=== PATIENT | male | born 1975 | race Caucasian/White ===

== ENCOUNTER 2020-12-12 10:02 | Emergency (ER) | payer OTHER, SELFPAY ==
[2020-12-12 10:12] VITALS: BP 123/83; PULSE 68; RESP 16; TEMP 36.6; O2SAT 98; BMI 25.0
--- NOTE | 2020-12-12 10:20 | ED_ITS ---
HPI - Back Pain/Injury General Chief Complaint: Back Pain/Injury Stated Complaint: low back pain Time Seen by Provider: 12/12/20 10:14 Source: patient Mode of arrival: ambulatory Limitations: no limitations History of Present Illness HPI Narrative: 45-year-old male with a past medical history of chronic back pain presenting to the ED with complaints of acute on chronic back pain to the thoracic/lumbar region for the past 2 days worse today. Denies any trauma. Reports this is similar to his prior chronic back pain episodes. Denies any other symptoms complaints or concerns at this time. MD elicited complaint: back pain Pertinent past history: prior back pain Onset (ago): day(s) (Two days worse today) Timing: constant and progressively worsening Severity: moderate Similar Symptoms Previously: Yes Quality: spasming Location: lumbar spine and thoracic spine Radiation: none Exacerbating factors: movement and walking Relieving factors: none Associated symptoms: denies other symptoms Treatments prior to arrival: other (Reports he has used multiple [id number] medication no symptomatic relief.) Work related injury: No Related Data Previous Rx's Medication Instructions Recorded acetaminophen [Tylenol Extra 1,000 mg PO QID PRN #14 tab 12/12/20 Strength] cyclobenzaprine 10 mg PO Q8H #10 tab 12/12/20 naproxen 500 mg PO BID PRN #10 tab 12/12/20 oxycodone 5 mg PO BID PRN #10 tab 12/12/20 Allergies Allergy/AdvReac Type Severity Reaction Status Date / Time No Known Allergies Allergy Verified 12/12/20 10:12 Review of Systems Review of Systems: Constitutional : No trauma, No Weight loss, No Fever, No Chills, ENT/Mouth : No Hearing loss, No Ear Pain, No Nasal Congestion, No Sinus Pain, No Hoarseness, No sore throat, No Rhinorrhea, No Swallowing Difficulty Cardiovascular : No Chest Pain, No SOB Respiratory : No Cough, No Dyspnea Gastrointestinal : No Nausea, No Vomiting, No Diarrhea, No abdominal Pain, No Hematochezia, No Melena Genitourinary : No Dysuria, No Urinary Frequency, No Hematuria, No Urinary or Bowel Incontinence/retention Musculoskeletal : + Back pain, No neck pain, No joint stiffness, No joint swelling Skin : No Skin Lesions, No rash or signs of infection Neuro : No Weakness, No radiation, No Numbness, No Paresthesias, No headache, no loss of bowel or bladder incontinence, no saddle anesthesia, Focal weakness, No radiation Denies history of IV drug usage. Yes all other systems are reviewed and are neg ative [facility] Past Medical History Attestation statement: The following information was validated with the patient. Medical History Chronic low back pain Social History Social History Smoking Status: Current some day smoker Smoked in Last 30 Days: Yes Use of substances other than those prescribed or required for medical reasons: No Advance Directives: Yes Advance Directives Information Provided: No Advance Directives on File: No Physical Exam Vital Signs: Vital Signs: Last Vital Signs Temp 97.9 F 12/12/20 10:12 Pulse 68 12/12/20 10:12 Resp 16 12/12/20 10:12 BP 123/83 12/12/20 10:12 Pulse Ox 98 12/12/20 10:12 Body Mass Index 25.0 vital signs have been reviewed as normal and appeared to be correct. Blood pressure normal. Heart rate normal. Respiration rate normal. Temperature normal. Oxygen saturation normal. Appearance: Alert. Oriented X3. No acute distress. Head: Normal external exam. Normocephalic. Atraumatic. No Hu signs noted. No raccoon eyes noted Eyes: PERRLA. EOMI. Conjunctiva and sclera normal. Eyelids normal. ENT: EAC normal. TM's Normal. Pharynx normal. Uvula midline. Moist mucous membranes. No trismus noted. No drooling noted. No muffled voice noted. Neck: Normal inspection. Neck supple. FROM. No adenopathy. Thyroid Normal. No meningeal signs. No neck mass noted. CVS: Normal heart rate and rhythm. Heart sound normal. No murmurs noted. Pulses normal throughout. Respiratory: No respiratory distress. Painless inspiration. Breath sounds normal. No wheezes/rales/rhonchi noted. Chest nontender. No accessory muscle usage noted or decreased air movement noted. Abdomen: Soft and nontender. Bowel sounds normal in all 4 quadrants. No distention noted. No organomegaly noted. No visible injury noted. Back: No CVA tenderness. Full range of motion noted. No obvious deformities, or edema. Mild para-spinal muscular tenderness from lumbar region to coccyx. Full ROM in back and lower extremities. 5/5 strength hip extension/flexion, abduction, adduction. Mild Lumbar pain with hip flexion against resistance. Straight leg raise test negative on right; Straight leg raise test negative on left; Reflexes normal ankle and knee bilaterally; EHL motor strength normal bilaterally Skin: Skin warm and dry. Normal skin color. Normal skin turgor. No rashes/lesions/lacerations noted. Extremities: No lower extremity edema. Extremities exhibit normal range of motion. Extremities nontender. Neuro: Oriented X 3. No motor deficit. No sensory deficit. Reflexes normal. Course Course Course Narrative: Pt c likely muscular pain, but could be herniated disc. Neuro exam shows no deficits. Not c/w AAA/epidural abscess/dissection.No high risk Hx (Incont, fever, immunosupp, recent surgery/LP, coag, signif trauma, wt loss, puls mass, hx/o Ca, TB, or IVDU) to warrant MRI/CT today. Not c/w Pyelo/UTI/kidney stone/spinal fx. Not cauda equina syndrome. Imaging not currently indicated. DC c meds and f/u. MDM - Back Pain/Injury Medical Records Attestation: I reviewed the patient's medical records. Discharge Plan Discharge Clinical Impression: Strain of lumbar region, Chronic low back pain Patient Disposition: Home, Self-Care Instructions: Back Pain (ED), Lower Back Exercises (ED) Prescriptions: New cyclobenzaprine 10 mg tablet 10 mg PO Q8H Qty: 10 RF: 0 acetaminophen [Tylenol Extra Strength] 500 mg tablet 1,000 mg PO QID PRN (Reason: fever or pain) Qty: 14 RF: 0 naproxen 500 mg tablet 500 mg PO BID PRN (Reason: pain) Qty: 10 RF: 0 oxycodone 5 mg tablet 5 mg PO BID PRN (Reason: pain) Qty: 10 RF: 0 Referrals: Physician,None [Primary Care Provider] - 2 days (Your PCP as needed) Stand Alone Forms: Work/School Release Print Language: Serbian
== END 2020-12-12 10:38 | disposition home or self-care (01) ==
PROVIDERS: Emergency Provider Emergency Medicine Emergency Medical Services
DX: G89.29 Other chronic pain (principal); M54.5 Low back pain; S39.012A Strain of muscle, fascia and tendon of lower back, initial encounter; X58.XXXA Exposure to other specified factors, initial encounter; F17.200 Nicotine dependence, unspecified, uncomplicated; Y93.9 Activity, unspecified; Y92.9 Unspecified place or not applicable; Y99.9 Unspecified external cause status
CPT/HCPCS: 99283

== ENCOUNTER 2021-04-15 10:17 | Emergency (ER) | payer SELFPAY ==
[2021-04-15 11:08] VITALS: BP 134/82; PULSE 69; RESP 18; TEMP 36.6; O2SAT 98; BMI 25.8
--- NOTE | 2021-04-15 11:22 | ED_ITS ---
HPI - Back Pain/Injury General Chief Complaint: Back Pain/Injury Stated Complaint: low back pain Time Seen by Provider: 04/15/21 11:22 Source: patient Mode of arrival: ambulatory Limitations: no limitations History of Present Illness HPI Narrative: 45-year-old male with a past medical history of chronic low back pain presents for worsening bilateral low back pain that started 2 days ago. There was no precipitating event. Patient did not lift anything heavy or have any repetitive motion. Patient sustained back injury at work in 2009, has had chronic back pain since then. Patient has no red flag symptoms, no incontinence of bowel or bladder, no fevers, no history of IV drug use, no saddle paresthesias, no leg weakness or numbness or tingling. MD elicited complaint: back pain Pertinent past history: prior back pain Onset (ago): day(s) (2) Timing: constant Severity: severe Similar Symptoms Previously: Yes Quality: aching Location: right lower back and left lower back Radiation: none Exacerbating factors: movement Relieving factors: none Context: unknown Associated symptoms: denies other symptoms Treatments prior to arrival: NSAIDS Work related injury: No Related Data Previous Rx's Medication Instructions Recorded acetaminophen 500 mg tablet 1,000 mg PO QID PRN #14 tab 12/12/20 (Tylenol Extra Strength) cyclobenzaprine 10 mg tablet 10 mg PO Q8H #10 tab 12/12/20 naproxen 500 mg tablet 500 mg PO BID PRN #10 tab 12/12/20 oxycodone 5 mg tablet 5 mg PO BID PRN #10 tab 12/12/20 methocarbamol 750 mg tablet 1,500 mg PO Q8H 5 Days #30 tab 04/15/21 oxycodone-acetaminophen 5 mg-325 1 tab PO Q4-6H PRN #10 tab 04/15/21 mg tablet (Percocet) Allergies Allergy/AdvReac Type Severity Reaction Status Date / Time No Known Allergies Allergy Verified 04/15/21 11:08 Review of Systems Constitutional: Constitutional: Denies chills, Denies fever(s), Denies headache(s) and Denies weakness Eyes: Eyes: Denies blurry vision, Denies diplopia and Denies eye pain ENT: Denies vertigo, Denies dizziness, Denies headache(s) and Denies neck pain Cardiovascular: Cardiovascular: Denies chest pain, Denies leg edema, Denies lightheadedness and Denies dyspnea Respiratory: Respiratory: Denies chest congestion, Denies cough and Denies dyspnea Gastrointestinal: Gastrointestinal: Denies abdominal pain, Denies melena, Denies hematochezia, Denies constipation, Denies fecal incontinence, Denies nausea and Denies vomiting Genitourinary: Genitourinary: Denies hematuria, Denies flank pain, Denies urinary frequency, Denies urinary hesitancy, Denies urinary incontinence and Denies urinary urgency Musculoskeletal: Musculoskeletal: Reports back pain, Denies muscle weakness, Denies neck pain, Denies radiating pain into limb and Denies tingling Integumentary/Breasts: Skin/Breast: Denies rash Neurologic: Denies burning sensations, Denies vertigo, Denies dizziness, Denies headache(s), Denies radicular pain, Denies Sensory deficit (Neuro), Denies tingling, Denies paresthesias and Denies weakness Comments: No saddle paresthesia Psychiatric: Psychiatric: Reports no additional psychiatric complaints [facility] Past Medical History Medical History Chronic low back pain Social History Social History Advance Directives: No Advance Directives Information Provided: No Physical Exam Vital Signs: Vital Signs: Last Vital Signs Temp 97.8 F 04/15/21 11:08 Pulse 69 04/15/21 11:08 Resp 18 04/15/21 11:08 BP 134/82 04/15/21 11:08 Pulse Ox 98 04/15/21 11:08 Body Mass Index 25.8 Const: General: cooperative, healthy appearing, alert and awake Nutritional Appearance: average body habitus Orientation/consciousness: patient oriented x3 Limitations: no limitations HENMT: Head: Yes normal to inspection Ears: hearing grossly normal bilaterally Face and sinus: Yes normal facial exam Eyes: Pupils: Equal, round and reactive pupils present EOM: EOMs intact bilaterally Neck: Neck: Yes full ROM, Yes no meningeal signs and Yes supple Resp: Effort & Inspection: normal respiratory effort and able to speak in complete sentences Auscultation: clear to auscultation bilaterally, no crackles, no rales, no rhonchi and no wheezes Cardio: Rate: regular rate Rhythm: regular rhythm Heart sounds: S1 normal heart sound present and S2 normal heart sound present : General: Yes no CVA tenderness Back/Spine/Pelvis: Back: no CVA tenderness Cervical Spine: normal cervical lordosis, cervical ROM normal, No cervical muscular tenderness and No Cervical spine tenderness Thoracic/Lumbar Spine: pain with thoraco-lumbar ROM, paraspinal muscle tenderness bilaterally in the lower thoracic and in the upper lumbar, thoraco-lumbar ROM limited with forward flexion, with lateral flexion to the right, with lateral flexion to the left, with rotation to the right and with rotation to the left, thoraco-lumbar spasm on the right greater than left, No thoracic spinal tenderness, No lumbar spinal tenderness and No straight leg raise positive Pelvis: no pain with anterior-posterior compression Skin: General skin exam: no rashes or lesions noted Neuro: General: patient oriented x3, no meningeal signs and no focal motor deficits Cranial nerves: Yes Equal, round and reactive pupils present Gait exam (Neuro): Normal gait present Motor exam (neuro): 5/5 motor strength present throughout Sensory Exam: No Sensory deficit (Neuro) Deep tendon reflexes (DTR's): Right patellar reflex intensity grade: 1+ and Left patellar reflex intensity grade: 1+ Extrem: General: Yes full ROM, Yes capillary refill normal and Yes normal gait Right lower extremity: full ROM and normal capillary refill Left lower extremity: full ROM and normal capillary refill Course Course Course Narrative: 45-year-old male with a history of chronic low back pain presents for atraumatic acute low back pain that started 2 days ago. The pain is bilateral, and is severe. On exam, patient has stable vitals, is afebrile, has intact lower extremity pulses, sensation, deep tendon reflexes, and motor strength. Negative straight leg raise. Patient has limited range of motion of his spine with flexion, extension, and rotation. Patient has palpable muscle spasm bilaterally and has midthoracic can lower paraspinous muscles. No vertebral point tenderness. Has no evidence of cauda equina, no evidence of epidural abscess, no red flag symptoms. Suggested to patient I would like to give him a shot of ketorolac along with muscle relaxant, patient adamantly refused shot of ketorolac. States he does not like needles. States he has never been an IV drug user and has no problems with addiction. States ibuprofen and naproxen do not work for him, and he got oxycodone last time for his back pain. Looked pt up on [facility], he has had only 2 short prescriptions, one for oxycodone, one for tramdol. I told patient I will prescribe Percocet for him this last time, but if he is to present to the emergency room in future, he will have to tolerate a shot. Discharge Plan Discharge Clinical Impression: Low back pain Qualifiers: Chronicity: acute Back pain laterality: bilateral Sciatica presence: without sciatica Qualified Code(s): M54.5 - Low back pain Patient Disposition: Home, Self-Care Instructions: Acute Low Back Pain (ED) Additional Instructions: Please fill the prescriptions and take the Robaxin as prescribed. Take the oxycodone as needed. Return to work on Thursday. Please call the list of primary care providers that we provided for you to get established with a new doctor. If you have leg weakness, if you are incontinent of bowel or bladder, if you have numbness or tingling in your groin, or any other new or concerning symptoms, please return to the emergency room. Prescriptions: New oxycodone-acetaminophen [Percocet] 5-325 mg tablet 1 tab PO Q4-6H PRN (Reason: pain) Qty: 10 RF: 0 methocarbamol 750 mg tablet 1,500 mg PO Q8H 5 Days Qty: 30 RF: 0 No Action cyclobenzaprine 10 mg tablet 10 mg PO Q8H Qty: 10 RF: 0 acetaminophen [Tylenol Extra Strength] 500 mg tablet 1,000 mg PO QID PRN (Reason: fever or pain) Qty: 14 RF: 0 naproxen 500 mg tablet 500 mg PO BID PRN (Reason: pain) Qty: 10 RF: 0 oxycodone 5 mg tablet 5 mg PO BID PRN (Reason: pain) Qty: 10 RF: 0 Stand Alone Forms: Work/School Release Interventions: ED Discharge Assessment Last Done: 04/15/21 11:49 Discharge Date/Time: 04/15/21 11:52
== END 2021-04-15 11:52 | disposition home or self-care (01) ==
PROVIDERS: Emergency Provider Emergency Medicine
DX: M54.5 Low back pain (principal); Z79.899 Other long term (current) drug therapy
CPT/HCPCS: 99283

== ENCOUNTER 2021-05-20 10:29 | Emergency (ER) | payer OTHER, SELFPAY ==
--- NOTE | ~2021-05-20 | XR_ITS ---
EXAMINATION: XR ELBOW, RIGHT XR ELBOW, LEFT CLINICAL INFORMATION: Trauma, pain COMPARISON: None TECHNIQUE: Each elbow is imaged in 3 views. There are a total of 6 views. FINDINGS: Right: There is no fracture, dislocation, or right elbow capsular effusion. The articular surfaces appear intact. There is no joint narrowing or erosive change. Small olecranon spur is present. Left: There is no fracture, dislocation, or left elbow capsular effusion. The articular surfaces appear intact. There is no joint narrowing or erosive change. Small olecranon spur is present. XR/XR elbow RT 2V IMPRESSION: 1. No fracture or dislocation or capsular effusion. 2. Small bilateral olecranon spurs.
--- NOTE | ~2021-05-20 | XR_ITS ---
EXAMINATION: XR THORACIC SPINE XR LUMBAR SPINE CLINICAL INFORMATION: Trauma, pain COMPARISON: None TECHNIQUE: The thoracic spine is imaged in 3 views. The lumbar spine is imaged in 3 views. There are total of 6 views. FINDINGS: Thoracic: There are 11 rib pairs. Subtle lucency overlying the left T11 costovertebral junction is likely related to superimposed bowel gas and not present on AP view lumbar spine. There is no thoracic vertebral compression or visible fracture. No focal disc narrowing. No spondylolisthesis or destructive process or paraspinal soft tissue swelling. Lumbar: There are 5 nonrib-bearing lumbar vertebrae of normal height and lumbar lordosis. No vertebral compression, visible fracture, disc narrowing, spondylolisthesis, destructive process. The SI joints and visualized sacrum are unremarkable. Bowel gas unremarkable. XR/XR thoracic spine 2V IMPRESSION: 1. 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 2. No thoracic or lumbar vertebral compression, fracture line, or spondylolisthesis.
--- NOTE | ~2021-05-20 | XR_ITS ---
EXAMINATION: XR THORACIC SPINE XR LUMBAR SPINE CLINICAL INFORMATION: Trauma, pain COMPARISON: None TECHNIQUE: The thoracic spine is imaged in 3 views. The lumbar spine is imaged in 3 views. There are total of 6 views. FINDINGS: Thoracic: There are 11 rib pairs. Subtle lucency overlying the left T11 costovertebral junction is likely related to superimposed bowel gas and not present on AP view lumbar spine. There is no thoracic vertebral compression or visible fracture. No focal disc narrowing. No spondylolisthesis or destructive process or paraspinal soft tissue swelling. Lumbar: There are 5 nonrib-bearing lumbar vertebrae of normal height and lumbar lordosis. No vertebral compression, visible fracture, disc narrowing, spondylolisthesis, destructive process. The SI joints and visualized sacrum are unremarkable. Bowel gas unremarkable. XR/XR lumbar spine 2-3V IMPRESSION: 1. 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 2. No thoracic or lumbar vertebral compression, fracture line, or spondylolisthesis.
--- NOTE | ~2021-05-20 | XR_ITS ---
EXAMINATION: XR ELBOW, RIGHT XR ELBOW, LEFT CLINICAL INFORMATION: Trauma, pain COMPARISON: None TECHNIQUE: Each elbow is imaged in 3 views. There are a total of 6 views. FINDINGS: Right: There is no fracture, dislocation, or right elbow capsular effusion. The articular surfaces appear intact. There is no joint narrowing or erosive change. Small olecranon spur is present. Left: There is no fracture, dislocation, or left elbow capsular effusion. The articular surfaces appear intact. There is no joint narrowing or erosive change. Small olecranon spur is present. XR/XR elbow LT 2V IMPRESSION: 1. No fracture or dislocation or capsular effusion. 2. Small bilateral olecranon spurs.
[2021-05-20 11:29] VITALS: BP 146/102; PULSE 75; RESP 16; TEMP 36.1; O2SAT 98; BMI 25.8
--- NOTE | 2021-05-20 12:45 | ED.BACK ---
HPI - Back Pain/Injury General Chief Complaint: Back Pain/Injury Stated Complaint: BACK INJ WORK RELATED Time Seen by Provider: 05/20/21 12:30 Source: patient Mode of arrival: ambulatory Limitations: no limitations History of Present Illness HPI Narrative: 45-year-old male who sustained a back injury while at work today. 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 He did not hit his head, no loss of consciousness. Patient states that his entire back is extremely painful and sore. MD elicited complaint: back pain Pertinent past history: recent trauma Onset (ago): hour(s) (1) Timing: constant Severity: severe Similar Symptoms Previously: No Quality: stabbing and aching Exacerbating factors: movement Relieving factors: none Context: fall Associated symptoms: denies other symptoms Work related injury: Yes Related Data Previous Rx's Medication Instructions Recorded acetaminophen 500 mg tablet 1,000 mg PO QID PRN #14 tab 12/12/20 (Tylenol Extra Strength) cyclobenzaprine 10 mg tablet 10 mg PO Q8H #10 tab 12/12/20 naproxen 500 mg tablet 500 mg PO BID PRN #10 tab 12/12/20 oxycodone 5 mg tablet 5 mg PO BID PRN #10 tab 12/12/20 methocarbamol 750 mg tablet 1,500 mg PO Q8H 5 Days #30 tab 04/15/21 oxycodone-acetaminophen 5 mg-325 1 tab PO Q4-6H PRN #10 tab 04/15/21 mg tablet (Percocet) cyclobenzaprine 10 mg tablet 10 mg PO TID 5 Days #15 tab 05/20/21 ibuprofen 600 mg tablet 600 mg PO Q8H 7 Days #21 tab 05/20/21 oxycodone 5 mg capsule 5 mg PO Q6H 5 Days #20 cap 05/20/21 Allergies Allergy/AdvReac Type Severity Reaction Status Date / Time No Known Allergies Allergy Verified 04/15/21 11:08 Review of Systems Constitutional: Constitutional: Denies body ache(s), Denies chills, Denies fatigue, Denies fever(s), Denies headache(s), Denies malaise and Denies weakness Eyes: Eyes: Denies diplopia ENT: Denies vertigo, Denies dizziness, Denies otalgia, Denies headache(s), Denies mouth pain, Denies post nasal drip, Denies sinus pain, Denies sinus pressure, Denies sore throat and Denies throat swelling Cardiovascular: Cardiovascular: Denies chest pain, Denies syncope, Denies leg edema, Denies lightheadedness, Denies Loss of Consciousness, Denies palpitations and Denies dyspnea Respiratory: Respiratory: Denies chest congestion, Denies cough and Denies dyspnea Gastrointestinal: Gastrointestinal: Reports abdominal pain, Denies hematochezia, Denies constipation, Denies diarrhea and Denies vomiting Musculoskeletal: Musculoskeletal: Reports back pain Neurologic: Denies confusion, Denies vertigo, Denies dizziness, Denies syncope, Denies headache(s) and Denies weakness Psychiatric: Psychiatric: Denies anxiety, Denies confusion and Denies depression Endocrine: Endocrine: Denies fatigue and Denies palpitations Allergic/Immunologic: Allergic/Immunologic: Denies throat swelling PMFSH Past Medical History Medical History Chronic low back pain Social History Social History Advance Directives: Yes Advance Directives Information Provided: Yes Advance Directives on File: No Physical Exam Vital Signs: Vital Signs: Last Vital Signs Temp 96.9 F 05/20/21 11:29 Pulse 75 05/20/21 11:29 Resp 18 05/20/21 14:12 BP 146/102 H 05/20/21 11:29 Pulse Ox 98 05/20/21 11:29 Body Mass Index 25.8 Const: General: No confusion Nutritional Appearance: well nourished Orientation/consciousness: No confusion Limitations: no limitations HENMT: Head: Yes normal to inspection, Yes normocephalic and Yes atraumatic Ears: hearing grossly normal bilaterally, external ears normal, TM's normal bilaterally and EAC's normal General nose exam: Normal external nose present Face and sinus: Yes normal facial exam and Yes sinuses nontender Mouth: Normal oral and palatal mucosa present Throat: Yes posterior oropharynx normal Eyes: Conjunctivae: conjunctivae normal Pupils: Equal, round and reactive pupils present EOM: EOMs intact bilaterally Neck: Neck: Yes full ROM, Yes no lymphadenopathy and Yes supple Resp: Effort & Inspection: normal respiratory effort and able to speak in complete sentences Auscultation: clear to auscultation bilaterally, no crackles, no rales, no rhonchi and no wheezes Cardio: Rate: regular rate Rhythm: regular rhythm Heart sounds: S1 normal heart sound present and S2 normal heart sound present GI: Inspection: Yes normal to inspection Palpation (GI): Soft to palpation, nontender, no guarding and not rigid Percussion: Yes normal to percussion Auscultation: normal bowel sounds Back/Spine/Pelvis: Other: Patient tender along the entire thoracic and lumbar spine. Patient tender and muscles paraspinous bilaterally. Patient is neurologically intact. Skin: General skin exam: no rashes or lesions noted Neuro: General: No confusion Cranial nerves: Yes Equal, round and reactive pupils present Extrem: General: Yes normal to inspection and Yes full ROM Psych: Appearance: grossly normal Affect: normal affect Attitude: cooperative Thought process: Normal thought process present Course Course Course Narrative: X-ray shows no thoracic or lumbar vertebral compression, fracture or spondylosis listhesis. Treated patient with oxycodone, ibuprofen, Flexeril. Counseled patient to return if worsening symptoms, incontinence bowel or bladder, leg weakness, saddle paresthesias. Patient verbalized agreement understanding of the plan. Discharge Plan Discharge Clinical Impression: Back pain Qualifiers: Back pain location: back pain in unspecified location Chronicity: acute Back pain laterality: bilateral Qualified Code(s): M54.9 - Dorsalgia, unspecified Patient Disposition: Home, Self-Care Instructions: Back Pain (ED) Additional Instructions: Call your primary care provider for follow-up appointment. I do not want you to return to work until your seen and released by your primary care provider. Please fill the prescriptions, please take the ibuprofen even though you think it does not help with pain will help with inflammation. Please take ibuprofen and Flexeril as prescribed, take the oxycodone as needed. Prescriptions: New oxycodone 5 mg capsule 5 mg PO Q6H 5 Days Qty: 20 RF: 0 cyclobenzaprine 10 mg tablet 10 mg PO TID 5 Days Qty: 15 RF: 0 ibuprofen 600 mg tablet 600 mg PO Q8H 7 Days Qty: 21 RF: 0 No Action oxycodone-acetaminophen [Percocet] 5-325 mg tablet 1 tab PO Q4-6H PRN (Reason: pain) Qty: 10 RF: 0 methocarbamol 750 mg tablet 1,500 mg PO Q8H 5 Days Qty: 30 RF: 0 cyclobenzaprine 10 mg tablet 10 mg PO Q8H Qty: 10 RF: 0 acetaminophen [Tylenol Extra Strength] 500 mg tablet 1,000 mg PO QID PRN (Reason: fever or pain) Qty: 14 RF: 0 naproxen 500 mg tablet 500 mg PO BID PRN (Reason: pain) Qty: 10 RF: 0 oxycodone 5 mg tablet 5 mg PO BID PRN (Reason: pain) Qty: 10 RF: 0 Stand Alone Forms: Work/School Release Interventions: ED Discharge Assessment Last Done: 05/20/21 14:19 Discharge Date/Time: 05/20/21 14:19
[2021-05-20] MEDS: Cyclobenzaprine HCl 10 MG TABLET PO (13:26)
[2021-05-20] MEDS: Ibuprofen 800 MG TABLET PO (13:27)
[2021-05-20] MEDS: oxyCODONE HCl Immed Release 5 MG TABLET PO (13:27)
[2021-05-20 14:05] VITALS: RESP 19
[2021-05-20 14:12] VITALS: RESP 18
== END 2021-05-20 14:19 | disposition home or self-care (01) ==
PROVIDERS: Emergency Provider Emergency Medicine
DX: M54.9 Dorsalgia, unspecified (principal); Z79.899 Other long term (current) drug therapy; M54.6 Pain in thoracic spine; M25.522 Pain in left elbow; M25.521 Pain in right elbow
CPT/HCPCS: 72070; 72100; 73070; 99283; 99284

== ENCOUNTER 2021-09-30 11:12 | Emergency (ER) | payer OTHER, SELFPAY ==
[2021-09-30 11:28] VITALS: BP 129/70; PULSE 83; RESP 19; TEMP 36.6; O2SAT 99; BMI 25.0
--- NOTE | 2021-09-30 14:14 | ED_ITS ---
HPI - Extremity Problem General Chief complaint: Extremity Injury, Upper Stated complaint: L ARM PAIN Time Seen by Provider: 09/30/21 12:26 Source: patient Mode of arrival: ambulatory Limitations: no limitations History of Present Illness MD Complaint: extremity pain Related Data Previous Rx's Medication Instructions Recorded acetaminophen 500 mg tablet 1,000 mg PO QID PRN #14 tab 12/12/20 (Tylenol Extra Strength) cyclobenzaprine 10 mg tablet 10 mg PO Q8H #10 tab 12/12/20 naproxen 500 mg tablet 500 mg PO BID PRN #10 tab 12/12/20 oxycodone 5 mg tablet 5 mg PO BID PRN #10 tab 12/12/20 methocarbamol 750 mg tablet 1,500 mg PO Q8H 5 Days #30 tab 04/15/21 oxycodone-acetaminophen 5 mg-325 1 tab PO Q4-6H PRN #10 tab 04/15/21 mg tablet (Percocet) cyclobenzaprine 10 mg tablet 10 mg PO TID 5 Days #15 tab 05/20/21 ibuprofen 600 mg tablet 600 mg PO Q8H 7 Days #21 tab 05/20/21 oxycodone 5 mg capsule 5 mg PO Q6H 5 Days #20 cap 05/20/21 Allergies Allergy/AdvReac Type Severity Reaction Status Date / Time No Known Allergies Allergy Verified 04/15/21 11:08 [facility] Past Medical History Medical History Chronic low back pain Social History Social History Advance Directives: No Advance Directives Information Provided: No Physical Exam Vital Signs: Vital Signs: Last Vital Signs Temp 98 F 09/30/21 11:28 Pulse 83 09/30/21 11:28 Resp 19 09/30/21 11:28 BP 129/70 09/30/21 11:28 Pulse Ox 99 09/30/21 11:28 BMI result Body Mass Index 25.0 Discharge Plan Discharge Prescriptions: No Action oxycodone-acetaminophen [Percocet] 5-325 mg tablet 1 tab PO Q4-6H PRN (Reason: pain) Qty: 10 RF: 0 methocarbamol 750 mg tablet 1,500 mg PO Q8H 5 Days Qty: 30 RF: 0 oxycodone 5 mg capsule 5 mg PO Q6H 5 Days Qty: 20 RF: 0 cyclobenzaprine 10 mg tablet 10 mg PO TID 5 Days Qty: 15 RF: 0 ibuprofen 600 mg tablet 600 mg PO Q8H 7 Days Qty: 21 RF: 0 cyclobenzaprine 10 mg tablet 10 mg PO Q8H Qty: 10 RF: 0 acetaminophen [Tylenol Extra Strength] 500 mg tablet 1,000 mg PO QID PRN (Reason: fever or pain) Qty: 14 RF: 0 naproxen 500 mg tablet 500 mg PO BID PRN (Reason: pain) Qty: 10 RF: 0 oxycodone 5 mg tablet 5 mg PO BID PRN (Reason: pain) Qty: 10 RF: 0
--- NOTE | 2021-09-30 14:29 | PC.NURSE ---
ATTEMPTED TO CALL PATIENT INTO [facility] MULTIPLE TIMES. NO ANSWER IN WAITING ROOM
== END 2021-09-30 14:31 | disposition left against medical advice (07) ==
PROVIDERS: Emergency Provider Emergency Medicine
DX: M79.602 Pain in left arm (principal)
CPT/HCPCS: 99281; 99282

== ENCOUNTER 2022-04-14 15:33 | Outpatient (REF) | payer SELFPAY ==
[2022-04-14 16:33] LABS: COVID-19 Test Negative (Negative)
== END 2022-04-14 15:34 | disposition home or self-care (01) ==
LOC: HO.LAB 15:33
PROVIDERS: Visit Provider Internal Medicine
DX: Z20.822 Contact with and (suspected) exposure to COVID-19 (principal)
CPT/HCPCS: 87635; C9803